=== PATIENT | male | born 1960 | race Caucasian/White ===

== ENCOUNTER → 2020-10-22 09:05 | Outpatient (CLI) | payer OTHER, SELFPAY ==
[2020-10-22 11:21] LABS: Influenza Control Positive
[2020-10-22 20:35] LABS: SARS-CoV-2 RNA PCR Negative
== END ==
PROVIDERS: PCP Family Medicine; Visit Provider Nurse Practitioner Family
DX: Z20.822 Contact with and (suspected) exposure to COVID-19 (principal); R05 Cough
CPT/HCPCS: 87804; C9803; U0003; U0005

== ENCOUNTER 2021-06-04 09:08 | Outpatient (CLI) | payer OTHER, SELFPAY ==
--- NOTE | ~2021-06-04 | US_ITS ---
EXAMINATION: US abdomen complete EXAM DATE: 06/04/2021 09:44 INDICATION: K74.60 - Unspecified cirrhosis of liver. TECHNIQUE: Multiple grayscale and Doppler images of the complete abdomen were obtained (by a technolo gist who performed the scan) and subsequently reviewed. There is no prior study for comparison. FINDINGS: The abdominal aorta is normal in caliber. Visualized portion IVC is patent. The pancreatic head a nd body are normal in appearance. The pancreatic tail is not visualized. The liver has normal echogenicity and contour. There are no focal liver lesions identified. There is no evidence of intrahepatic biliary duct dilation. Portal venous flow was seen in the hepatopedal , normal direction and has normal Doppler waveform. Common bile duct measures 4 mm, which is normal. The gallbladder wall is normal in thickness, with ex pected amount of distention. No sonographic evidence of pericholecystic fluid. There is cholelithia sis. Technologist performing exam reports patient did not demonstrate sonographic Ellis's sign. P satnam note that this sign is less reliable in patients who have received pain medication. Right kidney: There is normal contour and echogenicity. It measures 11.4 x 4.6 x 5.4 centimeters. There are no focal renal lesions identified. There is no hydronephrosis. Left kidney: There is normal contour and echogenicity. It measures 10.6 x 4.5 x 5.2 centimeters. T here are no focal renal lesions identified. There is no hydronephrosis. The spleen measures 18.3 cm craniocaudal dimension, moderately enlarged. IMPRESSION: 1. Moderate splenomegaly. 2. Cholelithiasis. Reviewed, dictated and finalized at location A.
== END 2021-06-04 09:09 ==
LOC: MICIMG 09:10
PROVIDERS: PCP Family Medicine; Visit Provider Physician Assistant
DX: K74.60 Unspecified cirrhosis of liver (principal); R16.1 Splenomegaly, not elsewhere classified; K80.20 Calculus of gallbladder without cholecystitis without obstruction
CPT/HCPCS: 76700

== ENCOUNTER 2022-04-01 14:08 | Outpatient (CLI) | payer OTHER, SELFPAY ==
[2022-04-01 14:28] LABS: Basophils Percent Auto 0.5 % (0.2-1.2); Eosinophils Absolute Auto 0.2 K/mm3 (0-0.3); Eosinophils Percent Auto 4.1 % (0-4.4); Hematocrit 38.1 % (42.0-52.0); Hemoglobin 12.1 g/dL (14.0-18.0); Immature Reticulocyte Fraction 12.7 % (3.0-15.9); Lymphocytes Absolute Auto 1.21 K/mm3 (0.9-3.2); Lymphocytes Percent Auto 27.4 % (18.3-44.2); Mean Corpuscular HGB Conc 31.8 g/dl (32-36); Mean Corpuscular Hemoglobin 28.2 pg (26-34); Mean Corpuscular Volume 88.8 fl (80-100); Monocytes Absolute Auto 0.5 K/mm3 (0.1-0.6); Monocytes Percent Auto 10.4 % (2.6-8.5); Neutrophils Absolute Auto 2.5 K/mm3 (1.3-6.7); Neutrophils Percent Auto 57.6 % (45.5-73.1); Red Blood Count 4.29 M/mm3 (4.6-6.20); Red Cell Distribution Width 14.2 % (11.5-14.5); Reticulocyte Hemoglobin Conten 31.2 pg (28.2-35.7); Reticulocyte Percent 1.35 % (0.7-4.3); Reticulocytes Absolute 0.06 B/L (32.2-175.7); White Blood Count 4.4 K/mm3 (4.5-10.0)
[2022-04-01 14:32] LABS: Immature Platelet Fraction Pct 2.1 % (0.9-11.2); Platelet Count Result 139 k/mm3 (150-375)
[2022-04-01 14:33] LABS: Mean Platelet Volume 9.2 fl (7.4-10.4)
[2022-04-01 15:25] LABS: Alanine Aminotransferase 30 U/L (6-50); Albumin Level 4.6 g/dL (3.5-5.1); Alkaline Phosphatase 106 U/L (38-126); Anion Gap 10 mmol/L (8-16); Aspartate Amino Transferase 34 U/L (17-59); Bilirubin,Total 0.4 mg/dL (0.2-1.3); Blood Urea Nitrogen 18 mg/dL (9-20); Calcium 9.8 mg/dL (8.4-10.2); Carbon Dioxide 26 mmol/L (22-30); Chloride 105 mmol/L (98-107); Estimated Glomerular Filt Rate > 60; Glucose 102 mg/dL (65-110); Lactate Dehydrogenase 459 U/L (313-618); Potassium 4.4 mmol/L (3.4-5.0); Sodium 141 mmol/L (137-145)
[2022-04-01 16:37] LABS: Folic Acid > 20.0 ng/mL (2.76->20)
[2022-04-01 17:34] LABS: Iron 105 ug/dL (49-181)
[2022-04-01 17:43] LABS: Percent Iron Saturation 19 % (20-50)
== END 2022-04-01 14:09 | disposition home or self-care (01) ==
LOC: ANHLAB 14:09
PROVIDERS: PCP Family Medicine; Visit Provider Internal Medicine Hematology & Oncology
DX: D61.818 Other pancytopenia (principal)
CPT/HCPCS: 36415; 80053; 82607; 82728; 82746; 83540; 83550; 83615; 85025; 85046; 85055

== ENCOUNTER 2022-07-29 13:47 | Inpatient (IN) | payer OTHER, SELFPAY ==
[2022-07-29] VITALS (33 sets, daily range): BP systolic 110–170; BP diastolic 58–99; PULSE 78–100; RESP 14–28; TEMP 36.2–37.2; O2SAT 96–100
--- NOTE | ~2022-07-29 | XR_ITS ---
EXAMINATION: XR chest 2V Exam Date/Time: 07/29/2022 14:05 INBOUND SALES ADVISOR HISTORY: SOB x 2 days, WEAKNESS NOTED Comparison: None available. RESULT: Lines, tubes, and devices: None. Lungs and pleura: Ill-defined streaky opacities in the bilateral lung bases, likely representing ate lectasis. Cardiomediastinal silhouette: Stable. Other: No acute osseous or upper abdominal finding. IMPRESSION: No acute cardiopulmonary process. Reviewed, dictated and finalized at location K. UND SALES ADVISOR
--- NOTE | ~2022-07-29 | CT_ITS ---
EXAMINATION: CT abdomen pelvis w con DATE: 07/30/2022 12:33 INDICATION: Acute blood loss. TECHNIQUE: Computed tomography (CT) of the abdomen and pelvis was performed with 100 mL Omnipaque 350 intravenous contrast. Automated exposure control and iterative reconstruction technique were employe d. The dose-length product was 449.99 mGy-cm. COMPARISON: CT abdomen and pelvis 06/28/2018 FINDINGS: The visualized portions of the lung bases demonstrate mild atelectasis. The heart size is n ormal. No pericardial effusion. There is wall thickening of the distal esophagus. The liver demonstra karla a nodular surface contour, consistent with cirrhosis. The gallbladder is normal. There is severe splenomegaly measuring 17.7 cm. The pancreas and adrenal glands are normal. There is cortical thinnin g of right kidney. There is a 2 mm stone in right kidney. There are 3 stones in left kidney measuring up to 3 mm. There are cysts in left kidney measuring up to 7 mm. There is diverticulosis of the colo n without evidence of diverticulitis. There is wall thickening of the descending and sigmoid colon. T here is an umbilical hernia containing fat. The appendix is normal. There is a splenorenal shunt. The re are large varices in the wall of the gastric fundus. There are no pathologically enlarged lymph no yon. There is no free intraperitoneal fluid. There is prominent fat in right inguinal canal that may be a hernia. There is severe lower lumbar spondylosis. IMPRESSION: 1. Cirrhosis of liver with portal venous hypertension. 2. Large varices in the wall of the gastric fundus. 3. Thickening of the distal esophagus, consistent with interstitial edema versus esophagitis. 4. Wall thickening of the descending and sigmoid colon, consistent with interstitial edema versus col itis. Reviewed, dictated and finalized at location A. CIATE DIRECTOR FINANCE IMPRESSION: 1. Cirrhosis of liver with portal venous hypertension. 2. Large varices in the wall of the gastric fundus. 3. Thickening of the distal esophagus, consistent with interstitial edema versu s esophagitis. 4. Wall thickening of the descending and sigmoid colon, consistent with interst itial edema versus colitis.
--- NOTE | 2022-07-29 13:58 | ECG_ITS ---
Measurements Intervals Mobile Rate: 91 P: 45 OK: 154 QRS: 1 QRSD: 103 T: 57 QT: 364 QTc: 450 Interpretive Statements SINUS RHYTHM BASELINE ARTIFACT- I, III, AVR, AVL NORMAL ECG NO PREVIOUS ECG AVAILABLE FOR COMPARISON Electronically Signed On 07-29-2022 14:50:49 AMMONIA BOX TENDER by Nestor Ag D.O.
[2022-07-29 14:56] LABS: Immature Platelet Fraction Pct 3.8 % (0.9-11.2); Mean Corpuscular Hemoglobin 26.5 pg (26-34); Mean Corpuscular Volume 88.4 fl (80-100); Mean Platelet Volume 10.3 fl (7.4-10.4); Platelet Count Result 69 k/mm3 (150-375); Red Blood Count 1.81 M/mm3 (4.6-6.20); Red Cell Distribution Width 15.7 % (11.5-14.5)
[2022-07-29 15:04] LABS: Alanine Aminotransferase 25 U/L (6-50); Alkaline Phosphatase 86 U/L (38-126); Anion Gap 4 mmol/L (8-16); Aspartate Amino Transferase 33 U/L (17-59); Bilirubin,Total 0.2 mg/dL (0.2-1.3); Blood Urea Nitrogen 20 mg/dL (9-20); Calcium 8.6 mg/dL (8.4-10.2); Carbon Dioxide 26 mmol/L (22-30); Chloride 106 mmol/L (98-107); Estimated CRCL calculation 53 ml/min; Estimated Glomerular Filt Rate > 60; Glucose 110 mg/dL (65-110); Potassium 4.2 mmol/L (3.4-5.0); Sodium 136 mmol/L (137-145)
[2022-07-29 15:17] LABS: White Blood Count 0.7 K/mm3 (4.5-10.0)
[2022-07-29 15:18] LABS: Hemoglobin 4.8 g/dL (14.0-18.0)
--- NOTE | 2022-07-29 15:23 | ED.SOB ---
HPI - SOB/Dyspnea General Chief Complaint: Shortness of Breath/Dyspnea Stated Complaint: SOB Time Seen by Provider: 07/29/22 15:15 History of Present Illness HPI Narrative: Patient is a 62-year-old male with a history of hypertension, cirrhosis presenting with shortness of breath. Patient states that over the last couple of days he has been increasingly short of breath as well as lightheaded. Patient states that every time he stands up or goes to the bathroom he feels like he is about to pass out. Denies chest pain, palpitations, cough, fevers, abdominal pain, nausea or vomiting, diarrhea, dysuria, leg swelling. Patient states that he had an episode of rectal bleeding several years ago but he denies any recent hematochezia, melena, hemoptysis. Related Data Allergies Allergy/AdvReac Type Severity Reaction Status Date / Time No Known Allergies Allergy Unknown Verified 02/18/22 09:42 Review of Systems Review of Systems: All systems reviewed & are unremarkable except as noted in HPI and below PMFSH Past Medical History Medical History (Updated 07/30/22 @ 21:33 by Helen Lloyd MD) Anxiety Cirrhosis Esophageal and gastric varices Essential hypertension History of hepatitis C Hypothyroidism Portal hypertension Surgical History Surgical History Status post left knee surgery Family History Family History Father Heart disease Father Family history of coronary artery disease Social History Social History (Updated 07/29/22 @ 21:04 by Vivi Mcnamara PA-C) Social History: Surrogate decision maker: Leona , spouse. Code status: Full code. Smoking packs per day: 1 Smoking cigarettes per day: 20.0 Years smoked: 15 Smoking pack-years: 15.00 Smoking status: Former smoker Tobacco type: cigarettes Second hand tobacco smoke exposure: No Smoking end date: 08/30/98 Alcohol intake: never Alcohol use details: No alcohol for decades. Substance use: never Substance use type: does not use Other substance usage details: Remote IV drug use. Lack of Transportation: No Lack of Food: Never True Current Housing: I Have Housing Concerned About Future Housing: No Difficulty Paying Gas/Electric Bills: No Difficulty Paying for Meds: No Currently Unemployed: No Education: Grade School Difficulty w/ Childcare or Family Care: No Additional living arrangements comments: Lives with and son. 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 Spiritual care concerns: No Exam Narrative: GENERAL: Pale appearing, nontoxic and in no acute distress HEAD: Normocephalic, atraumatic. EYES: PERRLA and EOMI. ENT: Nares clear, no rhinorrhea or epistaxis. Mucous membranes moist. NECK: Supple. CHEST: Clear to auscultation. No respiratory distress. HEART: Regular rate and rhythm. No murmur heard. Normal peripheral pulses. ABDOMEN: Soft, nontender, nondistended, normal active bowel sounds. EXTREMITIES: Normal range of motion. No edema. SKIN: Warm, dry, no rash. NEURO: No focal deficits. Alert and oriented x3. PSYCH: Normal mood and affect. Course Vital Signs Vital signs: Vital Signs Temperature 98.9 F 07/29/22 14:32 Pulse Rate 100 07/29/22 14:32 Respiratory Rate 20 07/29/22 14:32 Blood Pressure 143/77 H 07/29/22 14:32 Pulse Oximetry 100 07/29/22 14:32 Oxygen Delivery Room Air 07/29/22 14:32 Temperature 97.7 F 07/30/22 20:00 Pulse Rate 75 07/30/22 20:00 Respiratory Rate 16 07/30/22 20:00 Blood Pressure 134/87 07/30/22 20:00 Pulse Oximetry 98 07/30/22 20:00 Oxygen Delivery Room Air 07/30/22 00:34 MDM - SOB/Dyspnea MDM Narrative Medical decision making narrative: Patient is a 62-year-old male presenting with shortness of breath and lightheadedness. Vitals are within normal limits. Patient is p
[2022-07-29 15:26] LABS: Eosinophils Absolute Manual 0.02 K/mm3 (0.02-0.5); Eosinophils Percent Manual 4 % (0-4); Hypochromasia 2+ (NORMAL); Lymphocytes Absolute Manual 0.11 K/mm3 (1.1-4.5); Monocytes Absolute Manual 0.05 K/mm3 (0.1-0.90); Monocytes Percent Manual 8 % (3-9); Neutrophils Percent Manual 72 % (46-73); Platelet Estimate Decreased (Adequate); Schistocytes None Seen (NORMAL); Total Cells Counted 100
[2022-07-29 15:27] LABS: Anisocytosis 2+ (NORMAL)
[2022-07-29 16:03] LABS: INR 1.1; Prothrombin Time 13.7 Seconds (11.1-14.7)
[2022-07-29 16:04] LABS: Partial Thromboplastin Time 28.7 SECONDS (22.3-36.8)
[2022-07-29 16:12] LABS: Troponin I 0.024 ng/mL (0.000-0.034)
[2022-07-29 16:21] LABS: Influenza A QL RT-PCR Negative (Negative); Influenza B QL RT-PCR Negative (Negative); SARS-CoV-2 RNA PCR Positive
--- NOTE | 2022-07-29 16:45 | PM.IMHP ---
H&P: HPI History of Present Illness Date/Time: 07/29/22 16:45 Chief Complaint: Dizziness and shortness of breath. Narrative: This is a pleasant 62-year-old male with history of hepatitis C (treated years ago), cirrhosis with history of esophageal varices, gastric ulcer on EGD in January 2015, chronic and mild pancytopenia, hypertension, and hypothyroidism who presented to the ED for evaluation of dizziness and shortness of breath for the last several days. Over the last couple of days he has started to feel short of breath with any exertion which is unusual for him. When going from sitting to standing position he has also felt lightheaded and disease though he may pass out. He has had some sinus symptoms for a couple weeks though they seem to have improved. Appetite has been okay and he denies nausea and vomiting. No epigastric or abdominal pain. He denies abdominal bloating, distention, and belching. He has not noticed any change in his stool, specifically he has not noticed any bright red blood or dark stools. He has not had a cough and he denies chest pain, pleuritic pain, palpitations, orthopnea, paroxysmal nocturnal dyspnea, and lower extremity edema. He denies fever, chills, and sweats. Weight has remained stable. He has not noticed any swollen lymph nodes. Vital signs were stable on arrival to the emergency department. Pertinent labs include a white blood cell count of 0.7, RBC 1.81, hemoglobin 4.8, hematocrit 16 %, platelets 69. He did test positive for SARS-CoV-2 by PCR. Chest x-ray showed no acute cardiopulmonary process. He is being admitted in this setting for blood transfusion and further workup including hematology consultation. Review of Systems Review of Systems: Twelve systems were reviewed and are negative except for as per HPI. [facility] Past Medical History Medical History (Updated 07/29/22 @ 21:13 by Vivi Mcnamara PA-C) Anxiety Cirrhosis Esophageal and gastric varices Essential hypertension History of hepatitis C Hypothyroidism Portal hypertension Surgical History Surgical History Status post left knee surgery Family History Family History Father Heart disease Father Family history of coronary artery disease Social History Social History (Updated 07/29/22 @ 21:04 by Vivi Mcnamara PA-C) Social History: Surrogate decision maker: Leona Rajput, spouse. Code status: Full code. Smoking packs per day: 1 Smoking cigarettes per day: 20.0 Years smoked: 15 Smoking pack-years: 15.00 Smoking status: Former smoker Tobacco type: cigarettes Second hand tobacco smoke exposure: No Smoking end date: 08/30/98 Alcohol intake: never Alcohol use details: No alcohol for decades. Substance use: never Substance use type: does not use Other substance usage details: Remote IV drug use. Lack of Transportation: No Lack of Food: Never True Current Housing: I Have Housing Concerned About Future Housing: No Difficulty Paying Gas/Electric Bills: No Difficulty Paying for Meds: No Currently Unemployed: No Education: Grade School Difficulty w/ Childcare or Family Care: No Additional living arrangements comments: Lives with and son. 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 Spiritual care concerns: No Meds Home Medications and Allergies Home Medications Medication Instructions Recorded Confirmed Type amlodipine 10 mg tablet 10 mg PO DAILY #90 tabs 07/02/21 07/29/22 Rx pantoprazole 20 mg tablet,delayed 20 mg PO QAM #90 tabs 12/08/21 07/29/22 Rx release levothyroxine 200 mcg tablet 200 mcg PO DAILY #90 tabs 01/05/22 07/29/22 Rx (Synthroid) lisinopril 40 mg tablet 40 mg PO DAILY #90 tabs 01/05/22 07/29/22 Rx bupropion HCl 300 mg 24 hr tablet, 300 mg PO QAM #90 tabs 05/21/22 07/29/22 Rx extended release citalopram
[2022-07-29 16:56] LABS: Reticulocyte Hemoglobin Conten 14.9 pg (28.2-35.7); Reticulocyte Percent 2.85 % (0.7-4.3)
[2022-07-29 17:15] LABS: Lactate Dehydrogenase 184 U/L (120-246); Magnesium 2.1 mg/dL (1.6-2.3); Phosphorus 4.6 mg/dL (2.5-4.5); Uric Acid 6.2 mg/dL (3.5-8.5)
[2022-07-29 17:16] LABS: Iron 21 ug/dL (49-181)
[2022-07-29 17:16] LABS: Reticulocytes Absolute 0.05 B/L (32.2-175.7)
[2022-07-29 17:27] LABS: Transferrin 419 mg/dL (206-381)
[2022-07-29 17:31] LABS: Percent Iron Saturation 4 % (20-50)
[2022-07-29 17:54] LABS: Ferritin 4.64 ng/mL (11.1-264)
[2022-07-29 19:27] LABS: Troponin I 0.024 ng/mL (0.000-0.034)
[2022-07-29 20:26] LABS: Free T4 Free Thyroxine Reflex 0.75 ng/dL (0.78-2.19)
[2022-07-29 20:45] LABS: Folic Acid 14.6 ng/mL (2.76->20)
[2022-07-29] MEDS: TUBING, BLOOD SET 1 EACH XX (21:46)
[2022-07-29] MEDS: LORazepam (*CRX) 1 MG TABLET PO (23:02)
[2022-07-30] VITALS (7 sets, daily range): BP systolic 128–149; BP diastolic 79–96; PULSE 69–90; RESP 16–24; TEMP 36.2–36.7; O2SAT 96–98; BMI 24.9
[2022-07-30] MEDS: ACETAMINOPHEN 325 MG TABLET 650 MG PO ×2 (00:45→08:29)
[2022-07-30 01:45] LABS: Hematocrit 22.2 % (42.0-52.0)
[2022-07-30 01:49] LABS: Hemoglobin 7.1 g/dL (14.0-18.0)
[2022-07-30] MEDS: LEVOTHYROXINE SODIUM 100 MCG TABLET 200 MCG PO (05:31)
[2022-07-30 05:58] LABS: IFOB Positive Control Positive; Immunochemical Fecal Occult Bl Negative (N)
[2022-07-30] MEDS: PANTOPRAZOLE SOD SESQUIHYDRATE 20 MG TAB PO (08:28)
[2022-07-30] MEDS: buPROPion HCL XL (24 HR) 150 MG TABCR 300 MG PO (08:28)
[2022-07-30] MEDS: amLODIPine BESYLATE 5 MG TABLET 10 MG PO (08:28)
[2022-07-30] MEDS: lisinopriL 20 MG TABLET 40 MG PO (08:29)
[2022-07-30] MEDS: CITALOPRAM HYDROBROMIDE 20 MG TABLET 40 MG PO (08:29)
[2022-07-30] MEDS: LORazepam (*CRX) 1 MG TABLET PO (08:34)
[2022-07-30] MEDS: LEVOTHYROXINE SODIUM 25 MCG TABLET PO (11:33)
--- NOTE | 2022-07-30 12:54 | PDONCCN ---
HPI - Date of Consult Date/Time: 07/30/22 12:54 Requesting Physician: Myron Diaz MD Primary Care Provider: Jeevan Dumont MD - Consult Narrative Reason for consult: Pancytopenia Narrative: Angus Rajput Sr. is a 62 year old male with history of hepatitis C liver cirrhosis and splenomegaly. He was treated 2 years ago. He also has a history of peptic ulcer disease status post EGD diagnosed in 2014. He came into the hospital with lightheadedness and dizziness with shortness of breath. Labs showed WBC of 0.7 and hemoglobin of 4.8. He denies any bleeding including melena hematochezia. Denies any hemoptysis and hematemesis. Patient just came back from the CT scan. He has received 3 units of packed red blood cells. Labs showed significant iron deficiency with low ferritin of 4.6 and iron saturation of 4%. Kidney function and vitamin B12 was normal. Review of Systems - Review of Systems All systems reviewed & are unremarkable except as noted in HPI and [facility] History: Medical History (Last Updated 07/29/22 @ 17:11 by Vivi Mcnamara PA-C) Anxiety Cirrhosis Esophageal and gastric varices Essential hypertension History of hepatitis C Hypothyroidism Portal hypertension Surgical History: Surgical History (Last Reviewed 07/29/22 @ 17:11 by Vivi Mcnamara PA-C) Status post left knee surgery Family History: Family History (Last Reviewed 07/29/22 @ 21:04 by Vivi Mcnamara PA-C) Father Heart disease Father Family history of coronary artery disease - Social History Social History: Social History (Last Updated 07/29/22 @ 21:04 by Vivi Mcnamara PA-C) Alcohol Use: Alcohol intake: never Alcohol use details: No alcohol for decades. Substance Use: Substance use: never Substance use type: does not use Other substance usage details: Remote IV drug use. Others: Spiritual care concerns: No Smoking Status: Smoking status: Former smoker Tobacco type: cigarettes Second hand tobacco smoke exposure: No Smoking end date: 08/30/98 Smoking Pack-years: Smoking packs per day: 1 Smoking cigarettes per day: 20.0 Years smoked: 15 Smoking pack-years: 15.00 Social Determinants of Health: Has the Lack of Transportation Kept You From Medical Appointments or From Getting Medications?: No Within the Past 12 Months, Were You Worried Whether Your Food Would Run Out Before You Got Money to Buy More?: Never True What is Your Housing Situation Today?: I Have Housing Are You Worried That in the Next 2 Months, You May Not Have Your Own Housing to Live In?: No Do You Have Trouble Paying Your Heating Or Electricity Bill?: No Do You Have Trouble Paying For Medicines?: No Are You Currently Unemployed and Looking for Work?: No Highest Level of Education Completed: Grade School Do You Have Trouble With Childcare or the Care of a Family Member?: No Exam - Vital Signs Vital Signs - 24 hr 07/29/22 14:32 07/29/22 16:22 07/29/22 15:19 Temperature 37.2 C Pulse Rate 100 78 90 Respiratory Rate 20 26 H Blood Pressure 143/77 H Pulse Oximetry 100 Oxygen Delivery Room Air 07/29/22 15:30 07/29/22 15:31 07/29/22 16:03 Temperature Pulse Rate 90 94 91 Respiratory Rate 28 H 14 24 H Blood Pressure 130/75 Pulse Oximetry Oxygen Delivery 07/29/22 16:15 07/29/22 16:16 07/29/22 17:06 Temperature 37.1 C Pulse Rate 92 94 97 Respiratory Rate 24 H 22 H 16 Blood Pressure 135/80 110/77 Pulse Oximetry 97 96 Oxygen Delivery 07/29/22 17:22 07/29/22 16:17 07/29/22 16:30 Temperature 36.9 C Pulse Rate 82 94 98 Respiratory Rate 16 26 H 20 Blood Pressure 148/81 H Pulse Oximetry 97 Oxygen Delivery 07/29/22 16:31 07/29/22 16:45 07/29/22 17:29 Temperature Pulse Rate 96 95 91 Respiratory Rate 20 24 H 26 H Blood Pressure 143/90 H Pulse Oximetr
[2022-07-30] MEDS: IRON SUCROSE COMPLEX 500 MG in SODIUM CHLORIDE 0.9% IV 250 ML 78.57 MG IVPB (14:21)
--- NOTE | 2022-07-30 15:20 | PM.IMPN ---
Progress Note: A&P Assessment and Plan (1) Pancytopenia: Code(s): D61.818 - Other pancytopenia Status: Acute Assessment and Plan: Coags were unremarkable. Dr. Garcia has been consulted for his opinion and his input is greatly appreciated. (2) Symptomatic anemia: Code(s): D64.9 - Anemia, unspecified Status: Acute Assessment and Plan: Hemoglobin improved to 7.1 from 4.8 after being transfused 3 units packed red blood cells. He has a history of esophageal varices and gastric ulcer about 7 years ago though he has not had any recent issues with epigastric or abdominal discomfort, bloating, and he has not noticed any blood in the stools. stool for occult blood is negative. Patient started on IV iron per Heme-Onc. We will consult GI per Oncology recommendations (3) Splenomegaly: Code(s): R16.1 - Splenomegaly, not elsewhere classified Status: Acute Assessment and Plan: Moderate splenomegaly noted on imaging today. (4) Cirrhosis: Qualifiers: Hepatic cirrhosis type: unspecified hepatic cirrhosis Ascites presence: unspecified Qualified Code(s): K74.60 - Unspecified cirrhosis of liver Code(s): K74.60 - Unspecified cirrhosis of liver Status: Acute Assessment and Plan: Monitor CBC (5) Hypothyroidism: Qualifiers: Hypothyroidism type: unspecified Qualified Code(s): E03.9 - Hypothyroidism, unspecified Code(s): E03.9 - Hypothyroidism, unspecified Status: Acute Assessment and Plan: TSH high, T4 low. Will increase levothyroxine to 225 mcg daily from 200 mcg daily (6) Essential hypertension: Code(s): I10 - Essential (primary) hypertension Status: Acute Assessment and Plan: stable. Continue home meds (7) COVID-19: Code(s): U07.1 - COVID-19 Status: Acute Assessment and Plan: Not symptomatic. Supportive care. Isolation per protocol. Subjective Date/time seen: 07/30/22 15:20 no Issues overnight Review of Systems Review of Systems: Twelve systems were reviewed and are negative except for as per HPI. Exam Const: Other: Well-developed, mildly ill-appearing male in the semi-Dejesus position in bed. Weight: 85.1 kilograms. BMI: 29.4. HENMT: Other: Normocephalic, atraumatic. Nares pain bilaterally. Moist mucous membranes. Eyes: Other: Pupils are reactive. Extraocular motions intact. Sclerae anicteric. Conjunctiva are a bit pale. Neck: Other: Supple. Resp: Other: Respirations are nonlabored. Lungs are clear to auscultation bilaterally. Cardio: Other: Regular rate rhythm with normal S1-S2. GI: Other: Abdomen is soft, nontender, and nondistended with positive bowel sounds. Rectal exam deferred. Skin: Other: Warm and dry with generalized pallor. Neuro: Other: Alert. Cranial nerves 2-12 are grossly intact. No gross focal deficits to casual conversation. Extrem: Other: No cyanosis, clubbing, or edema. Peripheral pulses intact. Psych: Other: Pleasant and cooperative. Appropriate mood and affect. Objective Data Vital Signs Vital Signs: Vital Signs - 24 hr 07/29/22 16:22 07/29/22 15:30 07/29/22 15:31 Temperature Pulse Rate 78 90 94 Respiratory Rate 28 H 14 Blood Pressure 130/75 Pulse Oximetry Oxygen Delivery 07/29/22 16:03 07/29/22 16:15 07/29/22 16:16 Temperature Pulse Rate 91 92 94 Respiratory Rate 24 H 24 H 22 H Blood Pressure 135/80 Pulse Oximetry 97 Oxygen Delivery 07/29/22 17:06 07/29/22 17:22 07/29/22 16:17 Temperature 98.7 F 98.4 F Pulse Rate 97 82 94 Respiratory Rate 16 16 26 H Blood Pressure 110/77 148/81 H Pulse Oximetry 96 97 Oxygen Delivery 07/29/22 16:30 07/29/22 16:31 07/29/22 16:45 Temperature Pulse Rate 98 96 95 Respiratory Rate 20 20 24 H Blood Pressure 143/90 H Pulse Oximetry Oxygen Delivery 07/29/22 17:29 07/29/22 17:30 07/29
[2022-07-30 15:40] LABS: IFOB Positive Control Positive; Immunochemical Fecal Occult Bl Negative (N)
[2022-07-31] VITALS (14 sets, daily range): BP systolic 107–154; BP diastolic 66–91; PULSE 60–81; RESP 14–26; TEMP 35.8–36.8; O2SAT 95–100
[2022-07-31] MEDS: LEVOTHYROXINE SODIUM 25 MCG TABLET PO (05:36)
[2022-07-31] MEDS: LEVOTHYROXINE SODIUM 100 MCG TABLET 200 MCG PO (05:36)
--- NOTE | 2022-07-31 07:49 | WPDGICN ---
Assessment and Plan Assessment and plan (1) Pancytopenia: Code(s): D61.818 - Other pancytopenia Status: Acute Assessment and Plan: Patient with profound pancytopenia. This appears to be newly developed. Patient does have symptoms of fatigue and shortness of breath over recent days has not been very long. No signs of GI bleeding. Agree with Hematology evaluation is uncertain how much this could be related to his underlying cirrhosis. Because of concerns and history of GI blood loss a follow-up EGD will be performed. Colonoscopy can be arranged as an outpatient. (2) Cirrhosis: Qualifiers: Hepatic cirrhosis type: unspecified hepatic cirrhosis Ascites presence: unspecified Qualified Code(s): K74.60 - Unspecified cirrhosis of liver Code(s): K74.60 - Unspecified cirrhosis of liver Status: Acute Assessment and Plan: Patient with a history of cirrhosis appears to be related to hepatitis C or possibly some prior alcohol intake. Plan for EGD to assess for esophageal varices. He does have a history of this dating back to 2014. (3) History of hepatitis C: Code(s): Z86.19 - Personal history of other infectious and parasitic diseases Status: Acute Assessment and Plan: Hepatitis C was felt to be etiology for cirrhosis or at least a contributing factor is now been treated he is felt to be eradicating. Currently followed elsewhere for this. (4) COVID-19: Code(s): U07.1 - COVID-19 Status: Acute Assessment and Plan: Patient with active COVID-19. He is essentially asymptomatic. Continue measures to prevent spread of this. GI Consult Note Consult date/time: 07/31/22 07:49 Reason for consult: Pancytopenia, history of cirrhosis. HPI: Angus Rajput . is a 62 year old male I am asked to see because of pancytopenia. Patient has a known history of cirrhosis. He is a history of hepatitis C which was treated several years ago and felt to be a ratty case it. Patient does have a distant history of GI bleeding. In 2014 an EGD revealed esophageal varices and a gastric ulcer. Patient subsequently has done well with no signs of bleeding. He did well until he developed some sinus difficulties mild shortness of breath. He was admitted to the hospital for evaluation after he was found to have rather profound anemia with low white count and low platelet count as well. He gives no history of bleeding. His bowel habits are normal. He denies abdominal pain. At the time of admission was found to have be COVID positive. Because of his prior history of GI bleeding hematology is advised follow-up endoscopic evaluation. To exclude any possible GI bleeding contributing to his profound anemia. Review of Systems Review of Systems: Review of systems noncontributory. [facility] Past Medical History Medical History (Updated 07/30/22 @ 21:33 by Helen Lloyd MD) Anxiety Cirrhosis Esophageal and gastric varices Essential hypertension History of hepatitis C Hypothyroidism Portal hypertension Surgical History Surgical History Status post left knee surgery Family History Family History Father Heart disease Father Family history of coronary artery disease Social History Social History (Updated 07/29/22 @ 21:04 by Vivi Mcnamara PA-C) Social History: Surrogate decision maker: Leona Rajput, spouse. Code status: Full code. Smoking packs per day: 1 Smoking cigarettes per day: 20.0 Years smoked: 15 Smoking pack-years: 15.00 Smoking status: Former smoker Tobacco type: cigarettes Second hand tobacco smoke exposure: No Smoking end date: 08/30/98 Alcohol intake: never Alcohol use details: No alcohol for decades. Substance use: never Substance use type: does not use Other substance usage details:
[2022-07-31 07:59] LABS: Basophils Percent Auto 0.6 % (0.2-1.2); Eosinophils Absolute Auto 0.1 K/mm3 (0-0.3); Eosinophils Percent Auto 3.5 % (0-4.4); Hematocrit 26.4 % (42.0-52.0); Hemoglobin 8.5 g/dL (14.0-18.0); Immature Platelet Fraction Pct 4.6 % (0.9-11.2); Lymphocytes Absolute Auto 0.45 K/mm3 (0.9-3.2); Lymphocytes Percent Auto 26.2 % (18.3-44.2); Mean Corpuscular HGB Conc 32.2 g/dl (32-36); Mean Corpuscular Volume 83.8 fl (80-100); Mean Platelet Volume 9.8 fl (7.4-10.4); Monocytes Absolute Auto 0.3 K/mm3 (0.1-0.6); Monocytes Percent Auto 15.7 % (2.6-8.5); Neutrophils Absolute Auto 0.9 K/mm3 (1.3-6.7); Platelet Count Result 56 k/mm3 (150-375); Red Blood Count 3.15 M/mm3 (4.6-6.20); Red Cell Distribution Width 14.8 % (11.5-14.5)
[2022-07-31 08:01] LABS: White Blood Count 1.7 K/mm3 (4.5-10.0)
[2022-07-31 08:14] LABS: Anion Gap 8 mmol/L (8-16); Blood Urea Nitrogen 11 mg/dL (9-20); Calcium 8.8 mg/dL (8.4-10.2); Carbon Dioxide 24 mmol/L (22-30); Chloride 105 mmol/L (98-107); Estimated CRCL calculation 76 ml/min; Estimated Glomerular Filt Rate > 60; Glucose 103 mg/dL (65-110); Potassium 4.1 mmol/L (3.4-5.0); Sodium 137 mmol/L (137-145)
[2022-07-31] MEDS: amLODIPine BESYLATE 5 MG TABLET 10 MG PO (09:19)
[2022-07-31] MEDS: CITALOPRAM HYDROBROMIDE 20 MG TABLET 40 MG PO (09:20)
[2022-07-31] MEDS: buPROPion HCL XL (24 HR) 150 MG TABCR 300 MG PO (09:20)
[2022-07-31] MEDS: ACETAMINOPHEN 325 MG TABLET 650 MG PO (09:21)
[2022-07-31] MEDS: PANTOPRAZOLE SOD SESQUIHYDRATE 20 MG TAB PO (09:23)
[2022-07-31] MEDS: lisinopriL 20 MG TABLET 40 MG PO (09:23)
[2022-07-31] MEDS: FILGRASTIM-SNDZ 480 MCG/0.8 ML SYRINGE SUB-Q (09:28)
--- NOTE | 2022-07-31 10:12 | PM.IMPN ---
Progress Note: A&P Assessment and Plan (1) Pancytopenia: Code(s): D61.818 - Other pancytopenia Status: Acute Assessment and Plan: White cell count improving. Platelets down a little bit. Patient asymptomatic. Dr. Garcia has been consulted for his opinion and his input is greatly appreciated. Patient receiving Neupogen (2) Symptomatic anemia: Code(s): D64.9 - Anemia, unspecified Status: Acute Assessment and Plan: Hemoglobin improved after being transfused 3 units packed red blood cells. He has a history of esophageal varices and gastric ulcer about 7 years ago though he has not had any recent issues with epigastric or abdominal discomfort, bloating, and he has not noticed any blood in the stools. stool for occult blood is negative. Patient started on IV iron per Heme-Onc. CT abdomen pelvis showed: 1. Cirrhosis of liver with portal venous hypertension. 2. Large varices in the wall of the gastric fundus. 3. Thickening of the distal esophagus, consistent with interstitial edema versus esophagitis. 4. Wall thickening of the descending and sigmoid colon, consistent with interstitial edema versus colitis. GI consulted. Patient going for EGD today (3) Splenomegaly: Code(s): R16.1 - Splenomegaly, not elsewhere classified Status: Acute Assessment and Plan: Moderate splenomegaly noted on imaging (4) Cirrhosis: Qualifiers: Hepatic cirrhosis type: unspecified hepatic cirrhosis Ascites presence: unspecified Qualified Code(s): K74.60 - Unspecified cirrhosis of liver Code(s): K74.60 - Unspecified cirrhosis of liver Status: Acute Assessment and Plan: Monitor CBC. GI consulted (5) Hypothyroidism: Qualifiers: Hypothyroidism type: unspecified Qualified Code(s): E03.9 - Hypothyroidism, unspecified Code(s): E03.9 - Hypothyroidism, unspecified Status: Acute Assessment and Plan: TSH high, T4 low. Will increase levothyroxine to 225 mcg daily from 200 mcg daily Repeat thyroid profile in 6 weeks (6) Essential hypertension: Code(s): I10 - Essential (primary) hypertension Status: Acute Assessment and Plan: stable. Continue home meds (7) COVID-19: Code(s): U07.1 - COVID-19 Status: Acute Assessment and Plan: Not symptomatic. Supportive care. Isolation per protocol. Subjective Date/time seen: 07/31/22 10:12 Patient denies any symptoms at this time Review of Systems Review of Systems: Review of systems noncontributory. Exam Narrative: Physical exam reveals patient to be alert. Vital signs stable. HEENT exam is unremarkable. Patient anicteric. Skin exam reveals extensive tattooing. Lungs are clear to auscultation and percussion. Heart is without murmur or extra sounds. Abdomen bowel sounds are present soft nontender with no organomegaly. l. Stool Hemoccult negative. Objective Data Vital Signs Vital Signs: Vital Signs - 24 hr 07/30/22 12:00 07/30/22 16:00 07/30/22 12:00 Temperature 97.6 F Pulse Rate 70 80 79 Respiratory Rate 22 H Blood Pressure 142/79 H Pulse Oximetry 97 07/30/22 16:00 07/30/22 20:00 07/30/22 20:00 Temperature 97.6 F 97.7 F Pulse Rate 71 75 69 Respiratory Rate 22 H 16 Blood Pressure 128/81 134/87 Pulse Oximetry 98 98 07/31/22 00:00 07/31/22 00:00 07/31/22 04:00 Temperature 97.8 F Pulse Rate 69 70 67 Respiratory Rate 16 Blood Pressure 135/81 Pulse Oximetry 98 07/31/22 04:33 07/31/22 08:00 Temperature 97.3 F L Pulse Rate 76 60 Respiratory Rate 16 Blood Pressure 154/91 H Pulse Oximetry 99 Intake/Output Intake/Output: Intake & Output 07/28/22 07/29/22 07/30/22 07/31/22 23:59 23:59 23:59 23:59 Intake Total 700 / 700 2845 / 2845 400 / 400 Balance 700 / 700 2845 / 2845 400 / 400 Meds/Results Medications: Active Medications Generic Name Dose Route Start Last Admin
--- NOTE | 2022-07-31 13:32 | WPDANESEPPF ---
Anes - Initial Pre Proc Eval Procedure: Operation Date: 07/31/22 14:45 Proposed Procedures p Esophagogastroduodenoscopy - Lester Colvin MD Date/Time: 07/31/22 13:32 Surgeon: Myron Diaz MD Pre Op Diagnosis: Pancytopenia Patient Data Age: 62 Gender: M Height: 1.85 m Weight: 85.7 kg Last Vital Signs Temp 36.3 C L 07/31/22 04:33 Pulse 60 07/31/22 08:00 Resp 16 07/31/22 04:33 BP 154/91 H 07/31/22 04:33 Pulse Ox 99 07/31/22 04:33 O2 Del Method Room Air 07/30/22 00:34 Allergies Allergy/AdvReac Type Severity Reaction Status Date / Time No Known Allergies Allergy Unknown Verified 02/18/22 09:42 Home Medications Medication Instructions Recorded Confirmed Type amlodipine 10 mg tablet 10 mg PO DAILY #90 tabs 07/02/21 07/29/22 Rx pantoprazole 20 mg tablet,delayed 20 mg PO QAM #90 tabs 12/08/21 07/29/22 Rx release levothyroxine 200 mcg tablet 200 mcg PO DAILY #90 tabs 01/05/22 07/29/22 Rx (Synthroid) lisinopril 40 mg tablet 40 mg PO DAILY #90 tabs 01/05/22 07/29/22 Rx bupropion HCl 300 mg 24 hr tablet, 300 mg PO QAM #90 tabs 05/21/22 07/29/22 Rx extended release citalopram 40 mg tablet (Celexa) 40 mg PO DAILY #90 tabs 05/21/22 07/29/22 Rx lorazepam 0.5 mg tablet (Ativan) 1 mg PO TID PRN anxiety #60 tabs 06/29/22 07/29/22 Rx Laboratory Tests 07/30/22 07/31/22 07/31/22 14:43 07:51 07:51 WBC 1.7 K/mm3 L* K/mm3 (4.5-10.0) RBC 3.15 M/mm3 L M/mm3 (4.6-6.20) Hgb 8.5 g/dL L g/dL (14.0-18.0) Hct 26.4 % L % (42.0-52.0) MCV 83.8 fl D fl (80-100) MCH 27.0 pg pg (26-34) MCHC 32.2 g/dl g/dl (32-36) RDW 14.8 % H % (11.5-14.5) Plt Count 56 k/mm3 L k/mm3 (150-375) MPV 9.8 fl fl (7.4-10.4) Immature Gran % (Auto) 0.0 % % (0-0.5) Neut % (Auto) 54.0 % % (45.5-73.1) Lymph % (Auto) 26.2 % % (18.3-44.2) [place] % (Auto) 15.7 % H % (2.6-8.5) Eos % (Auto) 3.5 % % (0-4.4) Baso % (Auto) 0.6 % % (0.2-1.2) Lymph # (Auto) 0.45 K/mm3 L K/mm3 (0.9-3.2) [place] # (Auto) 0.3 K/mm3 K/mm3 (0.1-0.6) Eos # (Auto) 0.1 K/mm3 K/mm3 (0-0.3) Baso # (Auto) 0.0 K/mm3 K/mm3 (0.0-0.1) Abs Immat Gran (auto) 0.00 K/mm3 K/mm3 (0.00-0.031) Absolute Neuts (auto) 0.9 K/mm3 L K/mm3 (1.3-6.7) Absolute Nucleated RBC 0.0 K/mm3 K/mm3 (0.0-0.012) Nucleated RBC % 0.0 % % (0.0-0.2) % Immature Plt Fraction 4.6 % % (0.9-11.2) Sodium 137 mmol/L mmol/L (137-145) Potassium 4.1 mmol/L mmol/L (3.4-5.0) Chloride 105 mmol/L mmol/L (98-107) Carbon Dioxide 24 mmol/L mmol/L (22-30) Anion Gap 8 mmol/L mmol/L (8-16) BUN 11 mg/dL D mg/dL (9-20) Creatinine 1.00 mg/dL mg/dL (0.7-1.3) Estim Creat Clear Calc 76 ml/min ml/min Estimated GFR > 60 (59 - ) Glucose 103 mg/dL mg/dL (65-110) Calcium 8.8 mg/dL mg/dL (8.4-10.2) Stl Occult Blood (IFOB) Negative (N) Patient hx anesthesia problems: none Family hx anesthesia problems: none Results Review: All pre-operative results and documents have been reviewed as part of the pre-operative evaluation. [facility] Past Medical History Medical History Anxiety Cirrhosis Esophageal and gastric varices Essential hypertension History of hepatitis C Hypothyroidism Portal hypertension Surgical History Surgical History Status post left knee surgery Family History Family History Father Heart disease Father Family history of coronary artery disease Social History Social History (Reviewed 07/31/22 @ 13:32 by
--- NOTE | 2022-07-31 13:33 | PC.NURSE ---
to EGD per wheelchair
[2022-07-31] MEDS: LACTATED RINGERS 1,000 ML 150 ML IV CONT (13:55)
--- NOTE | 2022-07-31 15:11 | PC.NURSE ---
patient returning to floor from GI lab
[2022-07-31] MEDS: PROPRANOLOL HCL 20 MG TABLET PO (20:34)
[2022-07-31] MEDS: LORazepam (*CRX) 1 MG TABLET PO (20:36)
[2022-08-01] VITALS: BP 122/67; PULSE 59; RESP 14; TEMP 36.2; O2SAT 97
[2022-08-01 04:00] VITALS: BP 121/55; PULSE 62; RESP 14; TEMP 36.3; O2SAT 96
[2022-08-01] MEDS: LEVOTHYROXINE SODIUM 100 MCG TABLET 200 MCG PO (05:51)
[2022-08-01] MEDS: LEVOTHYROXINE SODIUM 25 MCG TABLET PO (05:51)
[2022-08-01 07:32] LABS: Basophils Percent Auto 0.4 % (0.2-1.2); Eosinophils Absolute Auto 0.3 K/mm3 (0-0.3); Eosinophils Percent Auto 2.9 % (0-4.4); Hematocrit 29.1 % (42.0-52.0); Hemoglobin 9.4 g/dL (14.0-18.0); Immature Granulocyte Absolute 0.22 K/mm3 (0.00-0.031); Immature Granulocyte Percent A 2.1 % (0-0.5); Immature Platelet Fraction Pct 6.7 % (0.9-11.2); Lymphocytes Absolute Auto 0.93 K/mm3 (0.9-3.2); Lymphocytes Percent Auto 8.8 % (18.3-44.2); Mean Corpuscular HGB Conc 32.3 g/dl (32-36); Mean Corpuscular Hemoglobin 27.5 pg (26-34); Mean Corpuscular Volume 85.1 fl (80-100); Mean Platelet Volume 10.5 fl (7.4-10.4); Monocytes Absolute Auto 0.9 K/mm3 (0.1-0.6); Monocytes Percent Auto 8.7 % (2.6-8.5); Neutrophils Absolute Auto 8.2 K/mm3 (1.3-6.7); Neutrophils Percent Auto 77.1 % (45.5-73.1); Platelet Count Result 72 k/mm3 (150-375); Red Blood Count 3.42 M/mm3 (4.6-6.20); White Blood Count 10.6 K/mm3 (4.5-10.0)
[2022-08-01 08:00] VITALS: BP 122/72; PULSE 63; RESP 16; TEMP 35.9; O2SAT 96
[2022-08-01] MEDS: CITALOPRAM HYDROBROMIDE 20 MG TABLET 40 MG PO (10:02)
[2022-08-01] MEDS: ACETAMINOPHEN 325 MG TABLET 650 MG PO (10:02)
[2022-08-01] MEDS: LORazepam (*CRX) 1 MG TABLET PO (10:02)
[2022-08-01] MEDS: amLODIPine BESYLATE 5 MG TABLET 10 MG PO (10:03)
[2022-08-01] MEDS: buPROPion HCL XL (24 HR) 150 MG TABCR 300 MG PO (10:03)
[2022-08-01 10:04] VITALS: PULSE 64
[2022-08-01] MEDS: PROPRANOLOL HCL 20 MG TABLET PO (10:04)
[2022-08-01] MEDS: PANTOPRAZOLE SOD SESQUIHYDRATE 20 MG TAB PO (10:05)
[2022-08-01] MEDS: lisinopriL 20 MG TABLET 40 MG PO (10:05)
--- NOTE | 2022-08-01 11:08 | WPDGIPROGNO ---
Progress Note: A&P Assessment and Plan (1) Pancytopenia: Code(s): D61.818 - Other pancytopenia Status: Acute Assessment and Plan: Patient with significant pancytopenia. After transfusion labs have improved white count 10.6, hemoglobin 9.4, platelets 14788. I suspect this likely is related to his underlying cirrhosis. Hematology evaluation in progress. (2) Cirrhosis: Qualifiers: Hepatic cirrhosis type: unspecified hepatic cirrhosis Ascites presence: unspecified Qualified Code(s): K74.60 - Unspecified cirrhosis of liver Code(s): K74.60 - Unspecified cirrhosis of liver Status: Acute Assessment and Plan: Patient with cirrhosis of the liver. He has a history of hepatitis C which is now treated and felt to be eradicated. This was done at [facility] hospital. I would recommend follow-up at [facility] be performed urgently because of his large gastric varix. Will start patient on beta-hui prophylactic therapy to minimize bleeding risk. He may benefit from a TIPS procedure. (3) History of hepatitis C: Code(s): Z86.19 - Personal history of other infectious and parasitic diseases Status: Acute (4) Gastric varices: Code(s): I86.4 - Gastric varices Status: Acute Assessment and Plan: Patient had no obvious esophageal varices at the time of endoscopy but he had a massively large gastric varix. This is at risk of bleeding. No signs of bleeding currently but given his decline in hemoglobin potentially this could have occurred in the recent past. Is certainly is at risk of bleeding. Will start patient on Inderal 20mg p.o. b.i.d. as a prophylactic dose for variceal bleeding. I think given the large size of this gastric varix in minimal therapeutic maneuvers that would help I would advise referral back to [facility] for continued management. I suspect it is possible that a TIPS procedure may be beneficial to decompress the varix. Would advise outpatient follow-up in a semi-urgent basis with [facility] for this problem and ongoing management of his cirrhosis. Subjective Date/time seen: 08/01/22 11:08 Patient alert comfortable this morning. He feels much improved after transfusion. No signs of active bleeding. No history of significant bleeding per his recollection. Stools have been heme negative. Review of Systems Review of Systems: Review of systems noncontributory. Exam Narrative: Physical exam reveals patient be alert. Vital signs stable. HEENT exam unremarkable. Patient is anicteric. Lungs are clear. Heart without murmur. Abdomen bowel sounds present soft nontender with no organomegaly. Objective Data Vital Signs Vital Signs: Vital Signs - 24 hr 07/31/22 14:02 07/31/22 12:00 07/31/22 14:35 Temperature 97.6 F Pulse Rate 67 70 78 Respiratory Rate 20 26 H Blood Pressure 117/75 109/71 Pulse Oximetry 98 99 Oxygen Delivery Room Air Room Air 07/31/22 14:45 07/31/22 14:55 07/31/22 15:05 Temperature Pulse Rate 78 71 67 Respiratory Rate 14 23 H 21 H Blood Pressure 107/70 108/71 116/82 Pulse Oximetry 100 96 99 Oxygen Delivery Room Air Room Air Room Air 07/31/22 15:30 07/31/22 16:00 07/31/22 20:34 Temperature 96.5 F L Pulse Rate 68 60 66 Respiratory Rate 18 Blood Pressure 119/69 Pulse Oximetry 99 Oxygen Delivery 07/31/22 20:00 08/01/22 00:00 08/01/22 04:00 Temperature 98.3 F 97.1 F L 97.3 F L Pulse Rate 81 59 L 62 Respiratory Rate 14 14 14 Blood Pressure 111/66 122/67 121/55 L Pulse Oximetry 95 97 96 Oxygen Delivery 08/01/22 10:04 08/01/22 08:00 Temperature 96.7 F L Pulse Rate 64 63 Respiratory Rate 16 Blood Pressure 122/72 Pulse Oximetry 96 Oxygen Delivery Intake/Output Intake/Output: Intake & Output 07/29/22 07/30/22 07/31/22 08/01/22 23:59 23:59 23:59 23:59 Intake Total 700 2845 1380 740 Output Total 1801 Balance 700 2845 -421 740 Meds/Results Medicati
[2022-08-01 11:55] VITALS: BP 116/66; PULSE 66; RESP 16; TEMP 36.5; O2SAT 97
--- NOTE | 2022-08-01 14:36 | PM.IMPN ---
Progress Note: A&P Assessment and Plan (1) Pancytopenia: Code(s): D61.818 - Other pancytopenia Status: Acute Assessment and Plan: White cell count improving. Platelets down a little bit. Patient asymptomatic. Dr. Garcia has been consulted for his opinion and his input is greatly appreciated. Patient receiving Neupogen (2) Symptomatic anemia: Code(s): D64.9 - Anemia, unspecified Status: Acute Assessment and Plan: Hemoglobin improved after being transfused 3 units packed red blood cells. He has a history of esophageal varices and gastric ulcer about 7 years ago though he has not had any recent issues with epigastric or abdominal discomfort, bloating, and he has not noticed any blood in the stools. stool for occult blood is negative. Patient started on IV iron per Heme-Onc. CT abdomen pelvis showed: 1. Cirrhosis of liver with portal venous hypertension. 2. Large varices in the wall of the gastric fundus. 3. Thickening of the distal esophagus, consistent with interstitial edema versus esophagitis. 4. Wall thickening of the descending and sigmoid colon, consistent with interstitial edema versus colitis. GI consulted. Patient going for EGD today (3) Splenomegaly: Code(s): R16.1 - Splenomegaly, not elsewhere classified Status: Acute Assessment and Plan: Moderate splenomegaly noted on imaging (4) Cirrhosis: Qualifiers: Hepatic cirrhosis type: unspecified hepatic cirrhosis Ascites presence: unspecified Qualified Code(s): K74.60 - Unspecified cirrhosis of liver Code(s): K74.60 - Unspecified cirrhosis of liver Status: Acute Assessment and Plan: Monitor CBC. GI consulted (5) Hypothyroidism: Qualifiers: Hypothyroidism type: unspecified Qualified Code(s): E03.9 - Hypothyroidism, unspecified Code(s): E03.9 - Hypothyroidism, unspecified Status: Acute Assessment and Plan: TSH high, T4 low. Will increase levothyroxine to 225 mcg daily from 200 mcg daily Repeat thyroid profile in 6 weeks (6) Essential hypertension: Code(s): I10 - Essential (primary) hypertension Status: Acute Assessment and Plan: stable. Continue home meds (7) COVID-19: Code(s): U07.1 - COVID-19 Status: Acute Assessment and Plan: Not symptomatic. Supportive care. Isolation per protocol. Subjective Date/time seen: 08/01/22 14:36 HPI-Narrative: This is a pleasant 62-year-old male with history of hepatitis C (treated years ago), cirrhosis with history of esophageal varices, gastric ulcer on EGD in January 2015, chronic and mild pancytopenia, hypertension, and hypothyroidism who presented to the ED for evaluation of dizziness and shortness of breath for the last several days. Over the last couple of days he has started to feel short of breath with any exertion which is unusual for him. When going from sitting to standing position he has also felt lightheaded and disease though he may pass out. He has had some sinus symptoms for a couple weeks though they seem to have improved. Appetite has been okay and he denies nausea and vomiting. No epigastric or abdominal pain.? He denies abdominal bloating, distention, and belching. He has not noticed any change in his stool, specifically he has not noticed any bright red blood or dark stools. He has not had a cough and he denies chest pain, pleuritic pain, palpitations, orthopnea, paroxysmal nocturnal dyspnea, and lower extremity edema. He denies fever, chills, and sweats.? Weight has remained stable.? He has not noticed any swollen lymph nodes. Vital signs were stable on arrival to the emergency department. Pertinent labs include a white blood cell count of 0.7, RBC 1.81, hemoglobin 4.8, hematocrit 16 %, platelets 69. He did test positive for SARS-CoV-2 by PCR. Chest x-ray showed no acute cardiopulmonary process. He is being admitted in this setting for blood transfusion and
--- NOTE | 2022-08-01 15:35 | PM.DS ---
DS: Admitting Diagnosis Discharge Date 08/01/2022 Admitting Diagnosis Dizziness and shortness of breath. DS: Discharge Diagnosis Discharge Diagnosis (1) Pancytopenia: Code(s): D61.818 - Other pancytopenia Status: Acute (2) Symptomatic anemia: Code(s): D64.9 - Anemia, unspecified Status: Acute (3) Splenomegaly: Code(s): R16.1 - Splenomegaly, not elsewhere classified Status: Acute (4) Cirrhosis: Qualifiers: Hepatic cirrhosis type: unspecified hepatic cirrhosis Ascites presence: unspecified Qualified Code(s): K74.60 - Unspecified cirrhosis of liver Code(s): K74.60 - Unspecified cirrhosis of liver Status: Acute (5) Hypothyroidism: Qualifiers: Hypothyroidism type: unspecified Qualified Code(s): E03.9 - Hypothyroidism, unspecified Code(s): E03.9 - Hypothyroidism, unspecified Status: Acute (6) Essential hypertension: Code(s): I10 - Essential (primary) hypertension Status: Acute (7) COVID-19: Code(s): U07.1 - COVID-19 Status: Acute DS: Summary Hospital Course Reason for hospitalization: HPI-Narrative: This is a pleasant 62-year-old male with history of hepatitis C (treated years ago), cirrhosis with history of esophageal varices, gastric ulcer on EGD in January 2015, chronic and mild pancytopenia, hypertension, and hypothyroidism who presented to the ED for evaluation of dizziness and shortness of breath for the last several days. Over the last couple of days he has started to feel short of breath with any exertion which is unusual for him. When going from sitting to standing position he has also felt lightheaded and disease though he may pass out. He has had some sinus symptoms for a couple weeks though they seem to have improved. Appetite has been okay and he denies nausea and vomiting. No epigastric or abdominal pain.? He denies abdominal bloating, distention, and belching. He has not noticed any change in his stool, specifically he has not noticed any bright red blood or dark stools. He has not had a cough and he denies chest pain, pleuritic pain, palpitations, orthopnea, paroxysmal nocturnal dyspnea, and lower extremity edema. He denies fever, chills, and sweats.? Weight has remained stable.? He has not noticed any swollen lymph nodes. Vital signs were stable on arrival to the emergency department. Pertinent labs include a white blood cell count of 0.7, RBC 1.81, hemoglobin 4.8, hematocrit 16 %, platelets 69. He did test positive for SARS-CoV-2 by PCR. Chest x-ray showed no acute cardiopulmonary process. He is being admitted in this setting for blood transfusion and further workup including hematology consultation. Hospital Course: patient presented with a pancytopenia with white counts of 0.7 patient seen by elementary supervisor started the patient on Neupogen and white counts are trending up and today patient white count is 10.6 and absolute neutrophil count 8239, will CPM and monitor, also upon arrival his hgb was 4.8 patient is was given 3 units of PRBC and his hgb today is 9.4, patient is instructed he must follow up with his chronic specialist and director of corporate marketing at [facility] as soon as possible, he has high risk of bleeding and patient understands, patient to follow-up with Dr. Garcia elementary supervisor as soon as possible, also to follow with his primary care as soon as possible, patient is instructed if any symptoms redeveloped to go to nearest emergency department. Time Spent with Patient Time attestation: Total time spent providing and/or coordinating discharge services: Exam Narrative: Patient is comfortable, NAD HEENT: eyes are clear and none icteric LUNGS:CTA HEART: RR S1S2 ABD: BS+, Soft and nontender Lower extremities: no edema SKIN: nonjaundiced Neuro: grossly intact. DS: Data Data Completed and Pending Labs on day of discharge: Labs from last 24 hours 08/01/22 06:33 WBC 10.6 H RBC 3.42 L
[2022-08-03 16:36] LABS: Haptoglobin 168 mg/dL (43-212)
== END 2022-08-01 16:05 | disposition home or self-care (01) | DRG 808 ==
LOC: ANHED 16:34 → ANH3MEDSUR 19:29
PROVIDERS: Emergency Medicine; Hospitalist; Internal Medicine Gastroenterology; Physician Assistant; Admitting Provider Internal Medicine; Emergency Provider Emergency Medicine; PCP Family Medicine; Visit Provider Family Medicine
PROC: 0DJ08ZZ Inspection of Upper Intestinal Tract, Via Natural or Artificial Opening Endoscopic (ICD-10-PCS; CPT 43235; principal; 2022-07-31 14:45)
DX: D61.818 Other pancytopenia (principal); U07.1 COVID-19; K76.6 Portal hypertension; I86.4 Gastric varices; K74.60 Unspecified cirrhosis of liver; I10 Essential (primary) hypertension; E03.9 Hypothyroidism, unspecified; R16.1 Splenomegaly, not elsewhere classified; F41.9 Anxiety disorder, unspecified; Z86.19 Personal history of other infectious and parasitic diseases; Z87.11 Personal history of peptic ulcer disease; Z87.891 Personal history of nicotine dependence
CPT/HCPCS: 36415; 36430; 71046; 74177; 80048; 80053; 82274; 82607; 82728; 82746; 83010; 83540; 83550; 83615; 83735; 84100; 84439; 84443; 84466; 84484; 84550; 85014; 85018; 85025; 85046; 85055; 85610; 85730; 86850; 86900; 86901; 86920; 87636; 93005; 99285; A9270; G0378; J1756; J2704; J7050; J7120; P9016; Q5101; Q9967

== ENCOUNTER 2023-01-17 05:40 | Emergency (ER) | payer OTHER, SELFPAY ==
--- NOTE | ~2023-01-17 | CT_ITS ---
EXAMINATION: CT lumbar spine wo con DATE: 01/17/2023 06:12 INDICATION: Low back pain TECHNIQUE: Computed tomography (CT) of the lumbar spine was performed without intravenous contrast. T he dose-length product (DLP) was 978.28 mGy-cm. Iterative reconstruction was used. COMPARISON: 07/30/2022 FINDINGS: There are 3 mm of stable retrolisthesis of L5 on S1. The vertebral body heights are maintai khurram. There is moderate loss of intervertebral disc space height at L2-3 and L5-S1. Small degenerative osteophytes project from the anterior endplates of multiple vertebral bodies. There is moderate face t joint osteoarthritis. Calcified atherosclerosis is noted. There has been interval embolization of g astric varices. Nonobstructing right nephrolithiasis is noted. IMPRESSION: 1. Moderate lumbar spondylosis without acute findings. Reviewed, dictated and finalized at location A.
[2023-01-17 05:44] VITALS: BP 167/103; PULSE 80; RESP 16; TEMP 36.3; O2SAT 100
--- NOTE | 2023-01-17 06:06 | ED.GENADULT ---
HPI - General Adult General Chief complaint: Back Pain/Injury <Jet Fairbanks MD - Last Filed: 01/17/23 06:20> Stated complaint: low back pain <Jet Fairbanks MD - Last Filed: 01/17/23 06:20> Time Seen by Provider: 01/17/23 05:54 <Jet Fairbanks MD - Last Filed: 01/17/23 06:20> History of Present Illness HPI narrative: Patient is a 62-year-old gentleman who presents the emergency department with chief complaint of low back pain. The patient states several days ago he started having pain in his right lumbar region and reports it radiates down through his right butt cheek down into his right leg patient reports her symptoms paresthesias in his leg but denies foot drop denies saddle anesthesia denies bowel or bladder incontinence or retention. <Jet Fairbanks MD - Last Filed: 01/17/23 06:20> Related Data Allergies/adverse reactions: Allergies Allergy/AdvReac Type Severity Reaction Status Date / Time No Known Allergies Allergy Unknown Verified 01/17/23 05:51 <Jet Fairbanks MD - Last Filed: 01/17/23 06:20> Review of Systems Review of Systems: A 10 system review of systems was completed on the patient and is negative except for what is stated in the HPI. Nursing and ancillary documentation was reviewed. <Jet Fairbanks MD - Last Filed: 01/17/23 06:20> [facility] Past Medical History Medical History: Medical History Anxiety Cirrhosis Esophageal and gastric varices Essential hypertension History of hepatitis C Hypothyroidism Portal hypertension <Jet Fairbanks MD - Last Filed: 01/17/23 06:20> Surgical History Surgical History: Surgical History Status post left knee surgery <eJt Fairbanks MD - Last Filed: 01/17/23 06:20> Family History Family History: Family History Father Heart disease Father Family history of coronary artery disease <Jet Fairbanks MD - Last Filed: 01/17/23 06:20> Social History Social History: Social History Social History: Surrogate decision maker: Leona Rajput, spouse. Code status: Full code. Smoking packs per day: 1 Smoking cigarettes per day: 20.0 Years smoked: 15 Smoking pack-years: 15.00 Smoking status: Former smoker Tobacco type: cigarettes Second hand tobacco smoke exposure: No Smoking end date: 08/30/98 Alcohol intake: never Alcohol use details: No alcohol for decades. Substance use: never Substance use type: does not use Other substance usage details: Remote IV drug use. Lack of Transportation: No Lack of Food: Never True Current Housing: I Have Housing Concerned About Future Housing: No Difficulty Paying Gas/Electric Bills: No Difficulty Paying for Meds: No Currently Unemployed: No Education: Grade School Difficulty w/ Childcare or Family Care: No Living arrangements: with family Additional living arrangements comments: Lives with and son. 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 Spiritual care concerns: No <Jet Fairbanks MD - Last Filed: 01/17/23 06:20> Exam Narrative: GENERAL: Well-appearing, well-nourished, and in no acute distress. HEAD: Normocephalic, atraumatic. EYES: PERRLA and EOMI. ENT: Nares clear, no rhinorrhea or epistaxis. Mucous membranes moist. NECK: Supple. CHEST: Clear to auscultation. No respiratory distress. HEART: Regular rate and rhythm. No murmur heard. Normal peripheral pulses. ABDOMEN: Soft, nontender, nondistended, normal active bowel sounds. EXTREMITIES: Normal range of motion. No edema. Back: Tenderness to palpation in the right SI
[2023-01-17] MEDS: KETOROLAC 30 MG/ML VIAL (*BKC) IM (06:16)
[2023-01-17] MEDS: MORPHINE SULFATE (*CRX) 4 MG/ML INJ IM (06:17)
[2023-01-17] MEDS: ORPHENADRINE CITRATE 100 MG TABLET.ER PO (06:18)
[2023-01-17 07:21] VITALS: BP 150/99; PULSE 70; RESP 18; O2SAT 100
== END 2023-01-17 08:22 | disposition home or self-care (01) ==
PROVIDERS: Emergency Provider Emergency Medicine; PCP Family Medicine
DX: M54.41 Lumbago with sciatica, right side (principal); I10 Essential (primary) hypertension; E03.9 Hypothyroidism, unspecified; K74.60 Unspecified cirrhosis of liver; K76.6 Portal hypertension; Z86.19 Personal history of other infectious and parasitic diseases; Z87.891 Personal history of nicotine dependence; M47.816 Spondylosis without myelopathy or radiculopathy, lumbar region
CPT/HCPCS: 72131; 96372; 99284; A9270; J1100; J1885; J2270

== ENCOUNTER 2023-07-16 15:31 | Emergency (ER) | payer OTHER, SELFPAY ==
[2023-07-16] VITALS (11 sets, daily range): BP systolic 125–178; BP diastolic 74–99; PULSE 77–95; RESP 16–22; TEMP 36.6; O2SAT 97–100
--- NOTE | ~2023-07-16 | CT_ITS ---
EXAMINATION: CT abdomen pelvis w con DATE: 07/16/2023 20:48 INDICATION: Right flank pain TECHNIQUE: Computed tomography (CT) of the abdomen and pelvis was performed with 100 mL Omnipaque-350 intravenous contrast. Automated exposure control and iterative reconstruction technique were employe d. The dose-length product was 319.31 mGy-cm. COMPARISON: 07/30/2022 FINDINGS: Approximately 3 cm long slightly serpiginous tubular soft tissue density with associated small calcif ied nodules in the left lower lobe which is unchanged since 2017 most likely bronchocele with calcifi cation related to old granulomatous disease. Heart size is normal. No pericardial or pleural effusion . There is persistent wall thickening in the distal esophagus. There is a fine nodular liver surface consistent with cirrhosis. Splenomegaly measuring 20.2 cm in craniocaudal length consistent with seco ndary portal venous hypertension. Extensive portosystemic collaterals with a few residual splenorenal collaterals. There has been interval coil embolization of the prior gastrosplenic collaterals. Gallb ladder, pancreas and bilateral adrenal glands are normal. There are few bilateral renal stones measur ing up to 3 mm in the left kidney and up to 2 mm in the right kidney. Unchanged 7 mm cyst at the lowe r pole of the left kidney. No ureteral stones or hydronephrosis. There is moderate colonic diverticul osis with a sigmoid predominance. There is no adjacent inflammatory change to suggest diverticulitis . Small bowel and appendix are normal. Bladder is normal. Tiny fat-containing umbilical hernia and sm all fat-containing right inguinal hernia. No free intraperitoneal gas or fluid. No pathologically enl arged abdominal or pelvic lymphadenopathy. Moderate lumbar and lower thoracic spondylosis. IMPRESSION: 1. Bilateral nonobstructing nephrolithiasis. 2. Cirrhosis likely secondary portal venous hypertension characterized by splenomegaly and splenorena l collaterals. 3. Interval embolization with resolution of prior gastrosplenic varices. 4. Persistent wall thickening of the distal esophagus which could be due to esophagitis. 5. Sigmoid diverticulosis. Reviewed, dictated and finalized at location A. [employer] IMPRESSION: 1. Bilateral nonobstructing nephrolithiasis. 2. Cirrhosis likely secondary portal venous hypertension characterized by splen omegaly and splenorenal collaterals. 3. Interval embolization with resolution of prior gastrosplenic varices. 4. Persistent wall thickening of the distal esophagus which could be due to eso phagitis. 5. Sigmoid diverticulosis.
[2023-07-16 16:02] LABS: Basophils Percent Auto 0.2 % (0.2-1.2); Eosinophils Absolute Auto 0.2 K/mm3 (0-0.3); Eosinophils Percent Auto 3.7 % (0-4.4); Hematocrit 40.2 % (42.0-52.0); Hemoglobin 13.3 g/dL (14.0-18.0); Immature Granulocyte Absolute 0.01 K/mm3 (0.00-0.031); Immature Granulocyte Percent A 0.2 % (0-0.5); Lymphocytes Absolute Auto 1.13 K/mm3 (0.9-3.2); Lymphocytes Percent Auto 24.8 % (18.3-44.2); Mean Corpuscular HGB Conc 33.1 g/dl (32-36); Mean Corpuscular Hemoglobin 30.6 pg (26-34); Mean Corpuscular Volume 92.6 fl (80-100); Mean Platelet Volume 9.8 fl (7.4-10.4); Monocytes Absolute Auto 0.4 K/mm3 (0.1-0.6); Monocytes Percent Auto 9.2 % (2.6-8.5); Neutrophils Absolute Auto 2.8 K/mm3 (1.3-6.7); Neutrophils Percent Auto 61.9 % (45.5-73.1); Platelet Count Result 109 k/mm3 (150-375); Red Blood Count 4.34 M/mm3 (4.6-6.20); Red Cell Distribution Width 12.9 % (11.5-14.5); White Blood Count 4.6 K/mm3 (4.5-10.0)
[2023-07-16 16:11] LABS: Alanine Aminotransferase 30 U/L (6-50); Albumin Level 4.7 g/dL (3.5-5.1); Alkaline Phosphatase 93 U/L (38-126); Anion Gap 11 mmol/L (8-16); Aspartate Amino Transferase 31 U/L (17-59); Bilirubin,Total 0.5 mg/dL (0.2-1.3); Blood Urea Nitrogen 18 mg/dL (9-20); Calcium 9.9 mg/dL (8.4-10.2); Carbon Dioxide 23 mmol/L (22-30); Chloride 106 mmol/L (98-107); Estimated CRCL calculation 70 ml/min; Estimated Glomerular Filt Rate > 60; Glucose 99 mg/dL (65-110); Potassium 3.9 mmol/L (3.4-5.0); Sodium 140 mmol/L (137-145)
[2023-07-16 18:41] LABS: Appearance Urine Clear (Clear); Bacteria Urine None Seen /hpf; Bilirubin Urine Negative (Negative); Blood Urine Negative (Negative); Color Urine Yellow (Yellow); Glucose Urine UA Negative (Negative); Ketones Urine Negative (Negative); Leukocyte Esterase Ur Negative LEU/UL (Negative); Nitrate Urine Negative (Negative); Non Pathogenic Casts 0-2; Protein Urine Trace mg/dL (Negative); RBC Urine 0-2 /hpf (0-2); Specific Grav Ur 1.018 (1.001-1.035); Squamous Epithelial Cell Urine None seen /hpf (Few); Urobilinogen Urine 0.2 mg/dL (<2.0); WBC Urine 0-5 /hpf; pH Urine 5.5 (5.0-9.0)
[2023-07-16 18:49] LABS: Add Urine Microscopic? YES
--- NOTE | 2023-07-16 19:21 | PC.NURSE ---
Assumed care of pt from KAILEY Gerard at this time.
--- NOTE | 2023-07-16 19:56 | ED.GENADULT ---
HPI - General Adult General Chief complaint: Urogenital-Male Stated complaint: flank pain Time Seen by Provider: 07/16/23 18:22 History of Present Illness HPI narrative: 62-year-old male with a history of cirrhosis, hepatitis-C, esophageal varices, hyperlipidemia, hypertension reports for evaluation for right-sided flank pain for the past few days, worsening today while he was at work. 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 Patient states the pain starts in his right flank/low back and radiates into his butt and into the top of his right thigh. He describes the pain in his leg as a ?burning? sensation. He endorses a history of kidney stones and is concerned this is secondary to kidney stone. He denies nausea or vomiting, fever, dysuria or hematuria, urinary frequency urgency, abdominal pain, melena or hematochezia, chest pain or shortness of breath. He does report a episode of soft stool today. He denies recent injury or trauma-, use of IV drugs, use of steroids or immunosuppressants, history of cancer. Patient states he was diagnosed with sciatica in the past few months and saw pain management. He had steroid injections place in his right flank in January/February of 2023 without improvement, so stopped going to pain management. Per chart review, patient's symptoms during his ED visit in December of 2022 and his PCP follow up visit describe similar sx the patient has now. Related Data Allergies Allergy/AdvReac Type Severity Reaction Status Date / Time No Known Allergies Allergy Unknown Verified 05/19/23 08:30 Review of Systems Review of Systems: CONSTITUTIONAL: Denies fever, chills, or sweats. EYES: Denies visual changes, redness, or discharge. ENT: Denies rhinorrhea, congestion, sore throat, or otalgia. CARDIOVASCULAR: Denies chest pain, palpitations, or edema. RESPIRATORY: Denies cough or dyspnea. GASTROINTESTINAL: See HPI GENITOURINARY: Denies dysuria or hematuria. SKIN: Denies rash or itching. MUSCULOSKELETAL: See HPI NEUROLOGIC: Denies headache, numbness, or weakness. PSYCHIATRIC: Denies anxiety or depression. [facility] Past Medical History Medical History Anxiety Cirrhosis Esophageal and gastric varices Essential hypertension History of hepatitis C Hypothyroidism Portal hypertension Surgical History Surgical History Status post left knee surgery Family History Family History Father Heart disease Father Family history of coronary artery disease Social History Social History Social History: Surrogate decision maker: Leona Rajput, spouse. Code status: Full code. Smoking packs per day: 1 Smoking cigarettes per day: 20.0 Years smoked: 15 Smoking pack-years: 15.00 Smoking status: Former smoker Tobacco type: cigarettes Second hand tobacco smoke exposure: No Smoking end date: 08/30/98 Alcohol intake: never Alcohol use details: No alcohol for decades. Substance use: never Substance use type: does not use Other substance usage details: Remote IV drug use. Lack of Transportation: No Lack of Food: Never True Current Housing: I Have Housing Concerned About Future Housing: No Difficulty Paying Gas/Electric Bills: No Difficulty Paying for Meds: No Currently Unemployed: No Education: Grade School Difficulty w/ Childcare or Family Care: No Living arrangements: with family Additional living arrangements comments: Lives with and son. 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 Spiritual care concerns: No Exam Narrative: GENERAL: Patient appears uncomfortable. Nontoxic appearing HEAD: Normocephalic, atraumatic. EYES: PERRLA and EOMI. ENT: Nares clear, no rhinorrhea or epistaxis. Mucous membranes m
[2023-07-16] MEDS: SODIUM CHLORIDE 0.9% IV 1,000 ML 999 ML IV CONT (20:11)
[2023-07-16] MEDS: LIDOCAINE 5% PATCH 1 PATCH TRANSDERM (20:11)
[2023-07-16] MEDS: MORPHINE SULFATE (*CRX) 4 MG/ML INJ IV PUSH (20:12)
[2023-07-16] MEDS: ORPHENADRINE CITRATE 100 MG TABLET.ER PO (20:28)
[2023-07-16 20:48] LABS: Lipase 154 U/L (23-300)
== END 2023-07-16 22:53 | disposition home or self-care (01) ==
PROVIDERS: Emergency Medicine; Emergency Provider Physician Assistant; PCP Family Medicine
DX: M54.16 Radiculopathy, lumbar region (principal); K74.60 Unspecified cirrhosis of liver; D69.6 Thrombocytopenia, unspecified; D64.9 Anemia, unspecified; K57.90 Diverticulosis of intestine, part unspecified, without perforation or abscess without bleeding; I10 Essential (primary) hypertension; E03.9 Hypothyroidism, unspecified; Z87.891 Personal history of nicotine dependence
CPT/HCPCS: 36415; 74177; 80053; 81001; 83690; 85025; 96361; 96374; 96375; 99284; A9270; J1100; J2270; J7030; Q9967

== ENCOUNTER 2024-05-31 15:07 | Emergency (ER) | payer OTHER, SELFPAY ==
[2024-05-31 15:18] VITALS: TEMP 36.7
--- NOTE | 2024-05-31 15:33 | ED.GENADULT ---
HPI - General Adult General Chief complaint: Animal Bite Stated complaint: animal bite Time Seen by Provider: 05/31/24 15:11 History of Present Illness HPI narrative: This is a 63-year-old male presenting ED with the chief complaint of a snake bite. Patient was working in his garage moving car parts around. He reached into a box and saw the snake. He thinks he may have bit him on the hand as he has a small cut although he has cuts all over his hands from working on cars. No swelling or edema. The patient then killed the snake and brought into the emergency department. Patient denies any physical symptoms such as nausea vomiting diarrhea, swelling at the site pain or other findings. Related Data Allergies Allergy/AdvReac Type Severity Reaction Status Date / Time No Known Allergies Allergy Unknown Verified 05/31/24 08:24 [facility] Past Medical History Medical History Anxiety Cirrhosis Esophageal and gastric varices Essential hypertension History of hepatitis C Hypothyroidism Portal hypertension Surgical History Surgical History Status post left knee surgery Family History Family History Father Heart disease Father Family history of coronary artery disease Social History Social History Social History: Surrogate decision maker: Leona Rajput, spouse. Code status: Full code. Smoking packs per day: 1 Smoking cigarettes per day: 20.0 Years smoked: 15 Smoking pack-years: 15.00 Smoking status: Former smoker Tobacco type: cigarettes Second hand tobacco smoke exposure: No Smoking end date: 08/30/98 Alcohol intake: never Alcohol use details: No alcohol for decades. Substance use: never Substance use type: does not use Other substance usage details: Remote IV drug use. Do You Feel Safe in your Home?: Yes Lack of Transportation: No Lack of Food: Never True Current Housing: I Have Housing Concerned About Future Housing: No Difficulty Paying Gas/Electric Bills: No Difficulty Paying for Meds: No Currently Unemployed: No Education: Grade School Difficulty w/ Childcare or Family Care: No Living arrangements: with family Additional living arrangements comments: Lives with and son. 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 Gender identity (if verbalized by the patient): Male Sexual Orientation (if Verbalized by the Patient): Straight or Heterosexual Spiritual care concerns: No Exam Narrative: APPEARANCE: No apparent distress. Head: atraumatic. EYES: EOMI, NOSE: Atraumatic NECK: Trachea midline RESPIRATORY: No increased rate of breathing CARDIOVASCULAR: RRR, ABDOMINAL: Non-distended MUSCULOSKELETAl: No obvious deformities NEURO: Alert. Moving 4/4 extremities SKIN:: Small jazmin over the dorsal aspect of the patient's palm just before the pinky. No surrounding erythema or redness. Patient has multiple small neck is over both of his hands and forearms. PSYCHIATRIC: Normal affect Course Vital Signs Vital signs: Vital Signs Temperature 98.1 F 05/31/24 15:18 Temperature 98.1 F 05/31/24 15:18 Medical Decision Making MDM Narrative Medical decision making narrative: -Course: 63-year-old male presenting after a possible snake bite. Patient has a small jazmin on his hand he is unsure the snake bit him or if he knicked himself working on the car. He has no swelling or erythema. He has no pain. The snake that he brought in was quite young/small and I'm not even sure if its big enough to bite his hand. I discussed an observation/lab work with patient he has declined. He said give me a tetanus shot and get me out of here. Patient instructed to return if he develops sophia
--- NOTE | 2024-05-31 15:45 | PC.NURSE ---
This RN called poison control at [id number]. Spoke with Whitley Tafoya. It Portfolio Manager was sent an email picture of the snake to [email or web address]. It Portfolio Manager recommenced baseline labs such as CBC, CMP, PT, INR, PTT. It Portfolio Manager states she will fax over information sheets. Patient declined lab work and observation to this RN and MD Aguilera. It Portfolio Manager also states the patient should avoid all antinflammatories while the wound is fresh. It Portfolio Manager states she patient should take tylenol for pain control.
--- NOTE | 2024-05-31 15:55 | PC.NURSE ---
Received call from poison control at this time. They received the email and states that the snake is a coin snake which is non venomous. They recommend follow up with PCP if signs of infection occur.
[2024-05-31] MEDS: TETANUS,DIPHTHERIA,AC PERTUSSIS ADULT (0.5 ML) BOOSTRIX IM (15:57)
[2024-05-31 16:11] VITALS: BP 142/87; PULSE 86; RESP 18; TEMP 36.9; O2SAT 100
== END 2024-05-31 16:12 | disposition home or self-care (01) ==
LOC: ANHED 15:53
PROVIDERS: Emergency Provider Emergency Medicine; PCP Family Medicine
DX: S61.451A Open bite of right hand, initial encounter (principal); Z23 Encounter for immunization; I10 Essential (primary) hypertension; E03.9 Hypothyroidism, unspecified; K74.60 Unspecified cirrhosis of liver; K76.6 Portal hypertension; Z86.19 Personal history of other infectious and parasitic diseases; Z87.891 Personal history of nicotine dependence; Z79.899 Other long term (current) drug therapy; W59.11XA Bitten by nonvenomous snake, initial encounter
CPT/HCPCS: 90471; 90715; 99282